=== PATIENT | male | born 1975 | race Caucasian/White ===

== ENCOUNTER 2017-10-25 06:05 | Day surgery (SDC) | payer BC ==
[~2017-10-25 06:05] MED LIST: ACETAMINOPHEN 1,000 MG/100 ML BTL IV ONE; CLINDAMYCIN 600MG/50ML PREMIX 600 MG/50 ML BAG IVPB ONE
[2017-10-25] MEDS ORDERED: SUCCINYLCHOLINE 20 MG/ML 10ML IVP ONE (06:06)
[2017-10-25] MEDS ORDERED: NEOSTIGMINE 1 MG/1 ML,10ML VIAL IV ONE (06:06)
[2017-10-25] MEDS ORDERED: PROPOFOL 10 MG/ML VIAL IV ONE (06:06)
[2017-10-25] MEDS ORDERED: SEVOFLURANE 250 ML INH ONE (06:06)
[2017-10-25] MEDS ORDERED: LIDOCAINE 2% MDV (20MG/ML) 20ML VIAL IV ONE (06:06)
[2017-10-25] MEDS ORDERED: ROPIVACAINE HCL (NAROPIN) /PF 5MG/ML 20ML VIAL IV ONE (06:06)
[2017-10-25] MEDS ORDERED: GLYCOPYRROLATE 0.2 MG/ML ML IV ONE (06:06)
[2017-10-25] MEDS ORDERED: EPINEPHRINE 1 MG/ML AMPUL SQ ONE (06:06)
[2017-10-25] MEDS ORDERED: KETOROLAC 30 MG/ML VIAL IVP ONE (06:06)
[2017-10-25] MEDS ORDERED: DEXAMETHASONE 4 MG/ML 1ML VIAL IVP ONE (06:06)
[2017-10-25] MEDS ORDERED: MIDAZOLAM HCL 2MG/2ML VIAL IV ONE (06:06)
[2017-10-25] MEDS ORDERED: ROCURONIUM BROMIDE 50MG/5ML VIAL IV ONE (06:06)
[2017-10-25] MEDS ORDERED: ONDANSETRON HCL IV 4 MG/2 ML VIAL IVP ONE (06:06)
[2017-10-25] MEDS ORDERED: FENTANYL PF 100MCG/2ML VIAL IV ONE (06:06)
--- NOTE | 2017-10-25 12:30 | Operative Note ---
DATE OF SURGERY: 10/25/2017 SURGEON: Cristiano Saravia DO REFERRING PROVIDER: MASON Hernandez PREOPERATIVE DIAGNOSES: 1. Tear of the left rotator cuff. 2. Chondrocalcinosis of the left rotator cuff. 3. Impingement syndrome, left shoulder. 4. Tear of the glenoid labrum, left shoulder. POSTOPERATIVE DIAGNOSES: 1. Tear of the left rotator cuff. 2. Chondrocalcinosis of the left rotator cuff. 3. Impingement syndrome, left shoulder. 4. Tear of the glenoid labrum, left shoulder. OPERATIVE PROCEDURES: 1. Arthroscopic repair of the left rotator cuff. 2. Arthroscopic subacromial decompression acromioplasty, left shoulder. 3. Arthroscopic debridement of the glenoid labrum, left shoulder. DESCRIPTION: This 42-year-old male was taken to the operating room and placed in the supine position on the operating room table where general anesthesia was induced. The patient was then placed in the beach chair position with all bony prominences well padded. Head was secured. Left shoulder was then prepped with Hibiclens and draped in the usual sterile fashion. A posterior portal was established in the glenohumeral joint of the left shoulder. Initial evaluation of the joint demonstrated marked fraying of the superior aspect of the glenoid labrum. Utilizing an anterior portal, we were able to probe this and see there was fraying from about the 10 to 12:30 position; however, the biceps anchor did not appear to be disrupted from the labrum. The rotating shaver was placed in the joint and debridement of this area was performed to stabilize the glenoid labrum. The remainder appeared unremarkable. No degenerative change. Glenohumeral ligaments were normal. The rotator cuff from the articular surfaced appeared to be essentially normal. We then placed the scope in the subacromial space and thorough subacromial decompression acromioplasty was performed. The patient's rotator cuff did not have any tears per se, however marked hyperemia of an area of the posterior supraspinatus or anterior infraspinatus area was identified, and I poked this with a spinal needle and calcium deposit debris came oozing out of the hole. This area was then debrided and a relatively large deposit of this calcium pyrophosphate deposition was identified, debrided, and had completely eroded and displaced his normal rotator cuff tissue. Once this had been debrided, it was necessary for us to repair this, and this was done utilizing an [employer] Speed[employer] technique. This was done in typical fashion using two 4.75 SwiveLock anchors, one with a fiber taper and one with a tiger tape, placed adjacent to the articular surface, one on the anterior and one at the posterior margin of the tear. Subsequently, the single limb of each one of these sutures was placed through a third SwiveLock anchor, which was placed inferior to the anterior aspect of the tear, the second placed inferior to the posterior aspect of the tear, and traction placed on these sutures and the anchors impaled. The repair was then seen to be satisfactory. The wound was copiously irrigated and suctioned, the instruments were removed, and the portals were closed to 4-0 nylon suture. Sterile dressings were applied and the patient was taken to the recovery room in satisfactory condition. GROSS PATHOLOGY: This patient demonstrated a tear of the superior glenoid labrum, but not completely detached from the labrum superiorly as discussed above, and this was debrided. In addition, calcium pyrophosphate deposition within the rotator cuff was seen, and this was debrided as described, and the cuff repaired. CC: MASON Hernandez
== END 2017-10-25 10:05 | disposition home or self-care (01) ==
LOC: SUR 06:05
PROVIDERS: ATTEND Orthopaedic Surgery
DX: M75.122 Complete rotator cuff tear or rupture of left shoulder, not specified as traumatic (principal); S43.432A Superior glenoid labrum lesion of left shoulder, initial encounter; M75.42 Impingement syndrome of left shoulder; M11.212 Other chondrocalcinosis, left shoulder
CPT/HCPCS: 29827; 29826; 01630; 64415; J1885; J2405; J3010; J2795; J0171; J0330; J2710